=== PATIENT | male | born 1940 | race Caucasian/White ===

== ENCOUNTER 2016-09-02 10:58 | Observation (INO) | payer BC ==
[2016-09-02] VITALS (8 sets, daily range): BP systolic 140–170; BP diastolic 44–77; PULSE 49–67; TEMP 97.4–98
[~2016-09-02] VITALS: Ht 177.8 cm; Wt 93.4 kg
[2016-09-02] MEDS ORDERED: PROSCAR 5MG5 MG PO (12:40)
[2016-09-02] MEDS ORDERED: CARDIZEM120 MG PO (12:40)
[2016-09-02] MEDS ORDERED: MULTIPLE VITAMI1 CAP PO (12:41)
[2016-09-02] MEDS ORDERED: PHARMASSURE GA500 MG PO (12:42)
[2016-09-02] MEDS ORDERED: MASON NATURAL1000 MG PO (12:42)
[2016-09-03] VITALS (7 sets, daily range): BP systolic 118–175; BP diastolic 64–86; PULSE 54–90; TEMP 97.5–98.5
[2016-09-03 07:34] LABS: HEMOGLOBIN 15.3 g/dl (13.5-18.0); MEAN CELL VOLUME 92 fl (80.0-100.0); MEAN CORPUSCULAR HEMOGLOBIN 31 pg (27.0-31.0); MEAN CORPUSCULAR HGB CONC 34 g/dl (33.0-37.0); MEAN PLATELET VOLUME 10.8 fl (7.4-10.4); PLATELET COUNT 280 K/mm3 (130-400); RED BLOOD COUNT 4.89 M/mm3 (4.20-5.60); REDCELL DISTRIBUTION WIDTH-CV 12.1 % (11.5-14.5); WHITE BLOOD COUNT 19.2 K/mm3 (4.8-10.8)
[2016-09-04 05:18] VITALS: BP 108/45; PULSE 51; TEMP 97.6
[2016-09-04 07:12] VITALS: BP 127/58; PULSE 64; TEMP 97.8
[2016-09-04 10:38] VITALS: BP 165/72; PULSE 56; TEMP 97.8
[2016-09-04 13:35] VITALS: BP 160/58; PULSE 48; TEMP 97.1
== END 2016-09-04 15:30 | disposition home or self-care (01) ==
LOC: SDCO 10:58 → SURG 16:30 → SDCO 09-03 10:59 → SURG 09-03 11:00
PROVIDERS: Urology
DX: N40.1 Benign prostatic hyperplasia with lower urinary tract symptoms (principal); R39.12 Poor urinary stream; N35.9 Urethral stricture, unspecified
CPT/HCPCS: OP; C1769; G0378; J0690; J1100; J1885; J2270; J2405; J2704; J3010; J7120